=== PATIENT | male | born 1955 | race Caucasian/White ===

== ENCOUNTER 2018-11-11 05:35 | Inpatient (IN) | payer MEDICARE, OTHER ==
[2018-11-04 14:09] LABS: BASOPHILS % (AUTO) 0.7 % (0-1); EOSINOPHILS # (AUTO) 0.2 X10'3 (0-0.9); EOSINOPHILS % (AUTO) 3.5 % (0-6); LYMPHOCYTES # (AUTO) 1.4 X10'3 (1.1-4.8); LYMPHOCYTES % (AUTO) 22.1 % (21-51); MEAN CORPUSCULAR HEMOGLOBIN 26.2 PG (27.0-31.0); MEAN CORPUSCULAR HGB CONC 33.8 g/dL (33.0-36.5); MEAN CORPUSCULAR VOLUME 77.6 FL (78-98); MONOCYTES # (AUTO) 0.6 X10'3 (0-0.9); MONOCYTES % (AUTO) 9.5 % (2-12); NEUTROPHILS # (AUTO) 4.1 X10'3 (1.8-7.7); NEUTROPHILS % (AUTO) 64.2 % (42-75); PRE OP HEMATOCRIT 43.4 % (42.0-52.0); PRE OP HEMOGLOBIN 14.7 g/dL (14.0-17.9); PRE OP PLATELET COUNT 262 X10'3 (140-440); RED BLOOD COUNT 5.59 X10'6 (4.70-6.10); RED CELL DISTRIBUTION WIDTH 15.2 % (11.5-14.5)
[2018-11-04 14:14] LABS: HEMOGLOBIN A1C 7.5 % (4.5-6.2)
[2018-11-04 14:21] LABS: ALBUMIN 3.4 G/DL (3.4-5.0); ALBUMIN/GLOBULIN RATIO 0.9 (1.1-1.5); ALKALINE PHOSPHATASE 63 IU/L (46-116); BLOOD UREA NITROGEN 18 MG/DL (7-18); BUN/CREATININE RATIO 17.8 (5.4-32.0); CALCIUM 9.2 MG/DL (8.5-10.1); CHLORIDE 100 MMOL/L (99-107); CREATININE 1.01 MG/DL (0.60-1.10); PRE OP ALT 45 U/L (30-65); PRE OP ANION GAP 3 (8-16); PRE OP AST 19 U/L (10-37); PRE OP BILIRUB, TOTAL 0.2 MG/DL (0.0-1.0); PRE OP GLUCOSE 197 MG/DL (70-104); PRE OP SODIUM 136 MMOL/L (135-145); TOTAL CARBON DIOXIDE 33.3 MMOL/L (24-32); TOTAL PROTEIN 7.2 G/DL (6.4-8.2); eGFR 74 ML/MIN
[2018-11-11] VITALS (20 sets, daily range): BP systolic 91–152; BP diastolic 50–82
[~2018-11-11] VITALS: Ht 182.9 cm; Wt 140.3 kg
[~2018-11-11 05:35] MED LIST: ATOR10TA87 PO; BENA1TAB14 PO; BUPR100T6 PO; BUPR300T53 PO; COLC0.6T69 PO; FLUT9.9S; HYDR-4353 PO; LORA10TA7 PO; OMEP40CA37 PO; TERA1CAP4 PO; ZOLP5TAB8 PO; ceFAZolin inj. 3,000 MG in normal saline 100ml IV soln 100 ML IV ONE; famotidine 20mg tablet PO ONE; ringers solution, lacted 1,000 ML IV SCH; vancomycin inj 1,500 MG in normal saline 300ml IV soln IV ONE
[2018-11-11] MEDS ORDERED: LIDOcaine 1% (10mg/ml) 2ml vial ONE (06:01)
[2018-11-11] MEDS ORDERED: cloNIDine hcl/PF 100mcg/ml inj ONE (07:31)
[2018-11-11] MEDS ORDERED: fentaNYL/PF 50MCG/1 ML 2ML syringe ONE (07:33)
[2018-11-11] MEDS ORDERED: MIDAZolam 5mg/5ml vial ONE ×2 (07:33→08:56)
[2018-11-11] MEDS ORDERED: ringers solution, lacted 1,000 ML IV SCH (08:13)
[2018-11-11] MEDS ORDERED: ondansetron/PF 4mg/2ml inj IV PRN ×2 (08:15→09:45)
[2018-11-11] MEDS ORDERED: proCHLORperazine 10 MG/2 ml inj IV PRN (08:15)
[2018-11-11] MEDS ORDERED: meperidine/PF 25mg/ml syringe IV PRN ×3 (08:15)
[2018-11-11] MEDS ORDERED: morphine 4 MG/ML inj SYRINge IV PRN ×2 (08:15)
[2018-11-11] MEDS ORDERED: ROPIVAcaine 0.5% (5mg/ml) 30ml vial ONE ×2 (08:39→09:15)
[2018-11-11] MEDS ORDERED: ketorolac trometh. 30mg/ml inj. ONE (08:39)
--- NOTE | 2018-11-11 09:40 | NUR ---
Received from OR via ORTHO BED, accompanied by Anesthesiologist DR ANGULO and report given by Anesthesiolgist. 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
[2018-11-11] MEDS ORDERED: magnesium hydroxide 30ml (MOM) UD suspension PO PRN (09:45)
[2018-11-11] MEDS ORDERED: HYDROmorphone 1 mg/ml syringe IV PRN (09:45)
[2018-11-11] MEDS ORDERED: acetaminophen 325mg tablet PO PRN (09:45)
[2018-11-11] MEDS ORDERED: bisacodyl 10mg suppository rectal RC PRN (09:45)
[2018-11-11] MEDS ORDERED: diphenhydrAMINE 25mg capsule PO PRN ×2 (09:45)
[2018-11-11] MEDS ORDERED: HYDROmorphone inj. 0.5 MG/0.5 ML DISP.SYRIN IV PRN (09:45)
[2018-11-11 09:52] LABS: APPEARANCE,SYNOVIAL FLUID HAZY; COLOR,SYNOVIAL FLUID YELLOW
[2018-11-11 09:53] LABS: LYMPHOCYTES,SYNOVIAL FLUID 85 % (0-75); MONOCYTES,SYNOVIAL FLUID 10 % (0-0); NEUTROPHILS,SYNOVIAL FLUID 5 % (0-25); SYN RBC 12500 /CU MM (0); SYN WBC 20 /CU MM (0-200)
--- NOTE | 2018-11-11 10:50 | NUR ---
Report called to receiving nurse. Transferred via ORTHO BED TO ROOM 4025W Belongings . Special Issues communicated to receiving nurse. PT'S RN KNOWS TO PLACE PT ON CONTINUOUS PULSE OX DUE TO PT HAVING SLEEP APNEA. PT AWAKE AND DOING WELL.
[2018-11-11] MEDS: gabapentin 300mg capsule PO SCH ×2 (15:21→20:47)
[2018-11-11] MEDS: ceFAZolin 1GM/D5W- ADD-VANTAGE 50 ML IV SCH ×2 (15:21→23:38)
[2018-11-11] MEDS: potassium cl 20mEq in 1/2 NS 1,000 ML IV SCH (15:22)
[2018-11-11] MEDS: acetaminophen 325mg tablet PO SCH ×2 (15:32→20:47)
--- NOTE | 2018-11-11 18:18 | NUR ---
Problems reprioritized. Patient report given, questions answered & plan of care reviewed with EMMANUEL Schuster.
--- NOTE | 2018-11-11 18:30 | NUR ---
Patient in room ORTHO 4024. I have received report from STACEYRN AND TRISHARN and had the opportunity to ask questions and assume patient care.
[2018-11-11] MEDS ORDERED: non-formulary drug (Benazepril/Hydrochlorothiazide (Benazepril-Hctz 20-12.5 Mg Tab) 1 TAB) PO SCH (20:00)
[2018-11-11] MEDS ORDERED: vancomycin/NS 1 GM ADD-VANTAGE 250 ML IV SCH (20:00)
[2018-11-11] MEDS: sennosides 8.6mg tablet PO SCH (20:46)
[2018-11-11] MEDS: lisinopril 20mg tablet PO SCH (20:47)
[2018-11-11] MEDS: buPROPion SR 150mg tablet PO SCH (20:47)
[2018-11-11] MEDS: HYDROchlorothiazide 12.5mg capsule PO SCH (20:47)
[2018-11-11] MEDS: oxyCODONE IR 5mg (immed. release) tablet PO PRN (20:51)
[2018-11-11] MEDS ORDERED: buPROPion SR 100mg tab PO SCH (21:00)
[2018-11-11] MEDS ORDERED: dextrose ORAL solution 15 GM/59 ML bottle PO PRN ×2 (22:50)
[2018-11-11] MEDS ORDERED: glucagon, human recombinant 1mg kit SUBCUT PRN (22:50)
[2018-11-11] MEDS ORDERED: MESSAGE TO PHARMACY PO ONE (22:50)
[2018-11-11] MEDS ORDERED: dextrose 50%-water 50ml dispensing syringe IV PRN ×2 (22:50)
[2018-11-11] MEDS: insulin glargine (Lantus) pen - multi-dose SQ SCH (23:14)
[2018-11-12] MEDS: acetaminophen 325mg tablet PO SCH ×4 (02:02→19:14)
[2018-11-12 02:06] VITALS: BP 132/85
[2018-11-12] MEDS: potassium cl 20mEq in 1/2 NS 1,000 ML IV SCH ×4 (05:21→21:35)
[2018-11-12] MEDS: oxyCODONE IR 5mg (immed. release) tablet PO PRN ×4 (05:22→23:35)
[2018-11-12 05:39] LABS: BASOPHILS % (AUTO) 0.3 % (0-1); EOSINOPHILS # (AUTO) 0.1 X10'3 (0-0.9); EOSINOPHILS % (AUTO) 1.5 % (0-6); HEMATOCRIT 40.4 % (42.0-52.0); HEMOGLOBIN 13.7 g/dl (14.0-17.9); LYMPHOCYTES # (AUTO) 0.9 X10'3 (1.1-4.8); LYMPHOCYTES % (AUTO) 9.9 % (21-51); MEAN CORPUSCULAR HEMOGLOBIN 26.4 PG (27.0-31.0); MEAN CORPUSCULAR HGB CONC 33.9 g/dL (33.0-36.5); MEAN CORPUSCULAR VOLUME 77.9 FL (78-98); MEAN PLATELET VOLUME 7.3 FL (7.4-10.4); MONOCYTES # (AUTO) 0.7 X10'3 (0-0.9); MONOCYTES % (AUTO) 7.9 % (2-12); NEUTROPHILS # (AUTO) 7.4 X10'3 (1.8-7.7); NEUTROPHILS % (AUTO) 80.4 % (42-75); PLATELET COUNT 242 X10'3 (140-440); RED BLOOD COUNT 5.18 X10'6 (4.70-6.10); RED CELL DISTRIBUTION WIDTH 15.1 % (11.5-14.5); WHITE BLOOD COUNT 9.3 X10'3 (4.5-11.0)
[2018-11-12 05:48] LABS: ANION GAP 8 (8-16); CHLORIDE 105 MMOL/L (99-107); POTASSIUM 4.3 MMOL/L (3.5-5.1); SODIUM 140 MMOL/L (135-145); TOTAL CARBON DIOXIDE 27.2 MMOL/L (24-32)
--- NOTE | 2018-11-12 06:24 | NUR ---
Problems reprioritized. Patient report given, questions answered & plan of care reviewed with EMMANUEL SIMS.
[2018-11-12 07:20] VITALS: BP 154/91
[2018-11-12 07:55] VITALS: BP 144/66
[2018-11-12] MEDS: loratadine 10mg tablet PO SCH (08:40)
[2018-11-12] MEDS: pantoprazole 40mg Tablet.DR PO SCH (08:40)
[2018-11-12] MEDS: atorvastatin 10mg tablet PO SCH (08:41)
[2018-11-12] MEDS: Terazosin 1mg capsule PO SCH (08:41)
[2018-11-12] MEDS: aspirin 325mg tablet PO SCH (08:41)
[2018-11-12] MEDS: buPROPion SR 150mg tablet PO SCH ×2 (08:42→19:14)
[2018-11-12] MEDS: HYDROchlorothiazide 12.5mg capsule PO SCH ×2 (08:43→19:14)
[2018-11-12] MEDS: gabapentin 300mg capsule PO SCH ×3 (08:44→21:47)
[2018-11-12] MEDS: lisinopril 20mg tablet PO SCH ×2 (08:44→19:15)
[2018-11-12] MEDS: insulin Lispro (HumaLOG) vial - multi-dose SQ SCH ×3 (09:02→19:18)
[2018-11-12] MEDS: fluticasone nasal spray 16GM bottle NS SCH (09:06)
[2018-11-12] MEDS: colchicine 0.6mg tablet PO SCH (09:07)
--- NOTE | 2018-11-12 11:01 | NUR ---
Student documentation: I have reviewed all interventions, assessments performed and documented by Sona Crespo. Student Medication Administration: For this medication-pass time frame, all medication were reviewed, dispensed, administered and documented per hospital policy by Sona Crespo.
[2018-11-12 11:25] VITALS: BP 115/61
--- NOTE | 2018-11-12 12:55 | NUR ---
DM consult: A1C 7.5. Pt seen by SOFIA for written/verbal DM ed; RD contact information provided. Addendum: 11/12/18 at [address] Amended: Links added.
--- NOTE | 2018-11-12 16:14 | NUR ---
Student documentation: I have reviewed and agree with all interventions, assessments performed and documented by SN Katherine.
[2018-11-12 18:00] VITALS: BP 143/68
--- NOTE | 2018-11-12 18:30 | NUR ---
Patient in room ORTHO 4024. I have received report from EMMANUEL Patel and had the opportunity to ask questions and assume patient care.
[2018-11-12] MEDS: celeCOXIB 100mg capsule PO SCH (19:15)
[2018-11-12] MEDS: sennosides 8.6mg tablet PO SCH (21:47)
[2018-11-12] MEDS: insulin glargine (Lantus) pen - multi-dose SQ SCH (21:53)
[2018-11-13 00:20] VITALS: BP 146/54
[2018-11-13] MEDS: acetaminophen 325mg tablet PO SCH ×2 (01:58→07:44)
[2018-11-13] MEDS: oxyCODONE IR 5mg (immed. release) tablet PO PRN ×4 (05:33→21:01)
[2018-11-13] MEDS: potassium cl 20mEq in 1/2 NS 1,000 ML IV SCH (05:35)
[2018-11-13 06:00] VITALS: BP 155/64
--- NOTE | 2018-11-13 06:18 | NUR ---
Problems reprioritized. Patient report given, questions answered & plan of care reviewed with EMMANUEL Rosa.
[2018-11-13 06:55] LABS: BASOPHILS % (AUTO) 0.5 % (0-1); EOSINOPHILS # (AUTO) 0.4 X10'3 (0-0.9); HEMATOCRIT 41.8 % (42.0-52.0); HEMOGLOBIN 13.6 g/dl (14.0-17.9); LYMPHOCYTES # (AUTO) 1.7 X10'3 (1.1-4.8); LYMPHOCYTES % (AUTO) 22.2 % (21-51); MEAN CORPUSCULAR HEMOGLOBIN 25.7 PG (27.0-31.0); MEAN CORPUSCULAR HGB CONC 32.4 g/dL (33.0-36.5); MEAN CORPUSCULAR VOLUME 79.1 FL (78-98); MEAN PLATELET VOLUME 7.5 FL (7.4-10.4); MONOCYTES # (AUTO) 0.6 X10'3 (0-0.9); NEUTROPHILS # (AUTO) 4.7 X10'3 (1.8-7.7); NEUTROPHILS % (AUTO) 63.3 % (42-75); PLATELET COUNT 233 X10'3 (140-440); RED BLOOD COUNT 5.29 X10'6 (4.70-6.10); RED CELL DISTRIBUTION WIDTH 15.1 % (11.5-14.5); WHITE BLOOD COUNT 7.5 X10'3 (4.5-11.0)
[2018-11-13 07:30] VITALS: BP 153/72
[2018-11-13] MEDS: pantoprazole 40mg Tablet.DR PO SCH (07:38)
[2018-11-13] MEDS: celeCOXIB 100mg capsule PO SCH ×2 (07:39→20:58)
[2018-11-13] MEDS: loratadine 10mg tablet PO SCH (07:39)
[2018-11-13] MEDS: Terazosin 1mg capsule PO SCH (07:40)
[2018-11-13] MEDS: atorvastatin 10mg tablet PO SCH (07:40)
[2018-11-13] MEDS: HYDROchlorothiazide 12.5mg capsule PO SCH ×2 (07:41→21:01)
[2018-11-13] MEDS: gabapentin 300mg capsule PO SCH ×3 (07:43→21:00)
[2018-11-13] MEDS: buPROPion SR 150mg tablet PO SCH ×2 (07:44→20:58)
[2018-11-13] MEDS: aspirin 325mg tablet PO SCH (07:46)
[2018-11-13] MEDS: lisinopril 20mg tablet PO SCH ×2 (07:46→21:02)
[2018-11-13] MEDS: fluticasone nasal spray 16GM bottle NS SCH (07:46)
[2018-11-13] MEDS: insulin Lispro (HumaLOG) vial - multi-dose SQ SCH ×3 (08:28→19:02)
[2018-11-13] MEDS: colchicine 0.6mg tablet PO SCH (09:43)
[2018-11-13] MEDS ORDERED: acetaminophen 325mg tablet PO PRN (09:45)
[2018-11-13 10:00] VITALS: BP 136/60
[2018-11-13 18:00] VITALS: BP 115/56
--- NOTE | 2018-11-13 18:25 | NUR ---
Problems reprioritized. Patient report given, questions answered & plan of care reviewed with Malika BENITEZ.
--- NOTE | 2018-11-13 18:30 | NUR ---
Patient in room ORTHO 4024. I have received report from Shelley BENITEZ and had the opportunity to ask questions and assume patient care.
--- NOTE | 2018-11-13 20:00 | NUR ---
He has a locked hinged brace on at all times.
[2018-11-13] MEDS: sennosides 8.6mg tablet PO SCH (21:00)
[2018-11-13] MEDS: insulin glargine (Lantus) pen - multi-dose SQ SCH (21:29)
[2018-11-13 22:00] VITALS: BP 125/53
[2018-11-14] MEDS: oxyCODONE IR 5mg (immed. release) tablet PO PRN ×3 (01:26→09:19)
[2018-11-14 06:00] VITALS: BP 126/62
--- NOTE | 2018-11-14 06:25 | NUR ---
Patient in room ORTHO 4024. I have received report from Malika BENITEZ and had the opportunity to ask questions and assume patient care.
--- NOTE | 2018-11-14 06:30 | NUR ---
Problems reprioritized. Patient report given, questions answered & plan of care reviewed with Shelley BENITEZ.
[2018-11-14 07:40] LABS: BASOPHILS # (AUTO) 0.1 X10'3 (0-0.2); BASOPHILS % (AUTO) 0.7 % (0-1); EOSINOPHILS # (AUTO) 0.4 X10'3 (0-0.9); EOSINOPHILS % (AUTO) 4.9 % (0-6); HEMATOCRIT 40.8 % (42.0-52.0); HEMOGLOBIN 13.5 g/dl (14.0-17.9); LYMPHOCYTES # (AUTO) 1.6 X10'3 (1.1-4.8); LYMPHOCYTES % (AUTO) 21.7 % (21-51); MEAN CORPUSCULAR HEMOGLOBIN 25.9 PG (27.0-31.0); MEAN CORPUSCULAR VOLUME 78.6 FL (78-98); MEAN PLATELET VOLUME 7.1 FL (7.4-10.4); MONOCYTES # (AUTO) 0.7 X10'3 (0-0.9); MONOCYTES % (AUTO) 8.9 % (2-12); NEUTROPHILS # (AUTO) 4.8 X10'3 (1.8-7.7); NEUTROPHILS % (AUTO) 63.8 % (42-75); PLATELET COUNT 254 X10'3 (140-440); RED CELL DISTRIBUTION WIDTH 15.1 % (11.5-14.5); WHITE BLOOD COUNT 7.6 X10'3 (4.5-11.0)
[2018-11-14] MEDS: insulin Lispro (HumaLOG) vial - multi-dose SQ SCH (08:25)
[2018-11-14] MEDS: celeCOXIB 100mg capsule PO SCH (08:31)
[2018-11-14] MEDS: lisinopril 20mg tablet PO SCH (08:31)
[2018-11-14] MEDS: pantoprazole 40mg Tablet.DR PO SCH (08:31)
[2018-11-14] MEDS: loratadine 10mg tablet PO SCH (08:31)
[2018-11-14] MEDS: HYDROchlorothiazide 12.5mg capsule PO SCH (08:32)
[2018-11-14] MEDS: aspirin 325mg tablet PO SCH (08:32)
[2018-11-14] MEDS: atorvastatin 10mg tablet PO SCH (08:32)
[2018-11-14] MEDS: gabapentin 300mg capsule PO SCH (08:32)
[2018-11-14] MEDS: colchicine 0.6mg tablet PO SCH (08:32)
[2018-11-14] MEDS: buPROPion SR 150mg tablet PO SCH (08:32)
[2018-11-14] MEDS: fluticasone nasal spray 16GM bottle NS SCH (08:32)
[2018-11-14] MEDS: Terazosin 1mg capsule PO SCH (08:32)
[2018-11-14 10:00] VITALS: BP 108/52
--- NOTE | 2018-11-14 12:16 | NUR ---
Patient stable for transfer to [facility] today at 1100. Report called to Ijeoma at [facility]. All belongings sent with patient.
== END 2018-11-14 11:00 | DRG 516 ==
LOC: PAS IN 05:35 → EDSTATUS 08:30 → ORTHO 4S 11:14
PROVIDERS: ADMIT Orthopaedic Surgery; ATTEND Orthopaedic Surgery
PROC: 0QSD0ZZ Reposition Right Patella, Open Approach (ICD-10-PCS; principal; 2018-11-11 07:32)
DX: S83.01 Lateral subluxation and dislocation of patella (principal); D62 Acute posthemorrhagic anemia; E11.9 Type 2 diabetes mellitus without complications; E78.5 Hyperlipidemia, unspecified; G47.30 Sleep apnea, unspecified; K21.9 Gastro-esophageal reflux disease without esophagitis; Z96.651 Presence of right artificial knee joint; L91.0 Hypertrophic scar; M17.11 Unilateral primary osteoarthritis, right knee; I10 Essential (primary) hypertension
CPT/HCPCS: 36415; 80051; 80053; 82948; 83036; 85025; 87070; 87075; 89051; 93005; 97116; 97162; 97530; A7000; C1758; G0378; J0690; J0735; J1815; J1885; J2250; J2795; J3010; J3370; J3490; J7030; J7120; L1832; Q0163

== ENCOUNTER 2019-11-25 20:48 | Emergency (ER) | payer MEDICARE, OTHER ==
[~2019-11-25] VITALS: Ht 182.9 cm; Wt 133.6 kg
[~2019-11-25 20:48] MED LIST changes: -BUPR100T6 PO; +OMEP40CA13 PO; -OMEP40CA37 PO; -ceFAZolin inj. 3,000 MG in normal saline 100ml IV soln 100 ML IV ONE; -famotidine 20mg tablet PO ONE; -ringers solution, lacted 1,000 ML IV SCH; -vancomycin inj 1,500 MG in normal saline 300ml IV soln IV ONE
[2019-11-25] MEDS ORDERED: ketorolac tromethamine 15mg/ml inj. IV ONE (21:05)
[2019-11-25] MEDS ORDERED: fentaNYL/PF 50MCG/1 ML 2ML syringe IV ONE (21:05)
[2019-11-25 23:12] VITALS: BP 167/87
== END 2019-11-25 22:39 | disposition home or self-care (01) ==
LOC: ER 20:49
DX: S42.294A Other nondisplaced fracture of upper end of right humerus, initial encounter for closed fracture (principal); S16.1XXA Strain of muscle, fascia and tendon at neck level, initial encounter; S09.90XA Unspecified injury of head, initial encounter; M25.511 Pain in right shoulder; M54.5 Low back pain; E11.9 Type 2 diabetes mellitus without complications; G89.29 Other chronic pain; Z98.890 Other specified postprocedural states; Z79.899 Other long term (current) drug therapy; W18.39XA Other fall on same level, initial encounter; Y93.89 Activity, other specified; Y92.89 Other specified places as the place of occurrence of the external cause; Y99.8 Other external cause status
CPT/HCPCS: 70450; 72125; 72131; 73030; 96374; 99285; J1885